=== PATIENT | male | born 1965 | race Caucasian/White ===

== ENCOUNTER → 2024-03-21 | Outpatient (CLI) | payer BC, SELFPAY ==
[2024-03-21 11:58] LABS: Anion Gap 5 (7-16); BUN/Creatinine Ratio 23 Ratio (12-20); Blood Urea Nitrogen 18 mg/dL (9-23); Calcium 10.5 mg/dL (8.3-10.6); Calcium (Corrected) 10.5 mg/dL (8.5-10.1); Chloride 106 mMol/L (98-107); Creatinine (Component) 0.8 mg/dL (0.6-1.3); Glucose 91 mg/dL (74-106); Osmolality,Calculated 281 (275-295); Phosphorous 2.5 mg/dL (2.4-5.1); Potassium 4.3 mMol/L (3.4-5.1); Sodium 140 mMol/L (136-145); eGFR > 60 See Note
== END | disposition home or self-care (01) ==
PROVIDERS: PCP Specialist; Referring Provider Psychiatry & Neurology Neurology; Visit Provider Psychiatry & Neurology Neurology
DX: Z01.89 Encounter for other specified special examinations (principal)
CPT/HCPCS: 36415; 80069

== ENCOUNTER → 2024-07-08 | Outpatient (CLI) | payer BC, SELFPAY ==
[2024-07-08 13:56] LABS: Basophils % (Auto) 0 % (0-2.5); Eosinophils % (Auto) 0 % (0-10); Hematocrit 46.1 % (41.0-53.0); Hemoglobin 15.6 g/dL (13.5-16.0); Immature Granulocytes % (Auto) 1 % (0-0); Immature Granulocytes Auto 0.03 Thou/mm3 (0.00-0.00); Lymphocytes # (Auto) 1.4 Thou/mm3 (1.0-4.8); Lymphocytes % (Auto) 23 % (10-50); Mean Corpuscular HGB Conc 33.8 g/dl (31.0-37.0); Mean Corpuscular Hemoglobin 28.2 pg (25.0-35.0); Mean Corpuscular Volume 83 fL (80-100); Monocytes # (Auto) 0.4 Thou/mm3 (0.0-0.8); Monocytes % (Auto) 7 % (0-12); Neutrophils # (Auto) 4.2 Thou/mm3 (1.8-7.7); Neutrophils % (Auto) 70 % (37-80); Nucleated Red Blood Cell % 0 /100 WBC (0); Platelet Count 208 Thou/mm3 (140-440); RDW Standard Deviation 41.8 fL (35.1-43.9); Red Blood Count 5.54 Miln/mm3 (4.50-5.90); White Blood Count 6.1 Thou/mm3 (3.8-10.6)
[2024-07-08 14:17] LABS: Alanine Aminotransferase 44 U/L (10-49); Albumin, Serum 4.4 gm/dL (3.5-5.0); Albumin/Globulin Ratio 1.4 (1.2-2.2); Anion Gap 9 (7-16); Aspartate Amino Transferase 36 U/L (0-34); BUN/Creatinine Ratio 18 Ratio (12-20); Bilirubin,Total 0.5 mg/dL (0.3-1.2); Blood Urea Nitrogen 14 mg/dL (9-23); Calcium 9.9 mg/dL (8.3-10.6); Calcium (Corrected) 9.9 mg/dL (8.5-10.1); Carbon Dioxide 27.5 mMol/L (20.0-31.0); Chloride 104 mMol/L (98-107); Creatinine (Component) 0.8 mg/dL (0.6-1.3); Globulin 3.2 gm/dL (2.3-3.5); Glucose 81 mg/dL (74-106); Osmolality,Calculated 278 (275-295); Potassium 4.1 mMol/L (3.4-5.1); Sodium 140 mMol/L (136-145); Total Protein 7.6 gm/dL (5.7-8.2); eGFR > 60 See Note
[2024-07-08 14:54] LABS: Alkaline Phosphatase 57 U/L (46-116)
== END | disposition home or self-care (01) ==
LOC: COPL 12:32
PROVIDERS: PCP Specialist; Referring Provider Psychiatry & Neurology Neurology; Visit Provider Psychiatry & Neurology Neurology
DX: Z01.89 Encounter for other specified special examinations (principal)
CPT/HCPCS: 36415; 80053; 85025

== ENCOUNTER 2025-01-17 12:05 | Inpatient (IN) | payer BC, SELFPAY ==
[2025-01-17] VITALS (7 sets, daily range): BP systolic 121–156; BP diastolic 73–86; PULSE 54–66; RESP 16–99; TEMP 35.9–37.4; O2SAT 97–98; BMI 29.7; BMI 27.8
--- NOTE | 2025-01-17 12:57 | XR_ITS ---
Examination: CT abdomen with intravenous contrast CT pelvis with intravenous contrast 2-D coronal reconstructions 2-D sagittal reconstructions Date and time of exam:January 17, 2025, 1518 hrs. Indications: Onset rectal bleeding today. CTDI: vol (mGy) 22.3 DLP: (mGycm) 969 Technique: Multiple axial sections of the abdomen and pelvis have been obtained. 64 slice high-resolution scanner used. 3 mm axial sections have been obtained, post intravenous injection 60 cc Isovue-370. 2-D sagittal, coronal reconstructions obtained. Low dose protocols were performed. One or more of the following dose reduction techniques were used; automated exposure control, adjustment of the mA and/or KV according to patient size, use of iterative reconstruction technique. Findings: No focal liver or splenic lesion. No biliary tract dilatation. No gallstones. No pancreatic mass. Normal adrenal glands. 3 mm right renal calculus, no hydronephrosis or ureteral calculi Aorta normal size. Normal appendix. Colonic diverticulosis, no diverticulitis. No bowel obstruction. Minimal thickening the rectal wall. Moderate prostatomegaly. No bladder mass Grade 1 spondylolisthesis L5 on S1 with advanced degenerative disc disease at this level Impression: 8mm right renal calculus, no hydronephrosis or ureteral calculi Normal appendix Colonic diverticulosis, no diverticulitis Mild thickening the rectal wall, differential would include proctitis, clinical correlation advised
--- NOTE | 2025-01-17 12:57 | EKG_ITS ---
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
--- NOTE | 2025-01-17 12:58 | PD.EDGIBLD ---
ED GI Bleed E/HPI General Chief complaint: GI Bleed Stated complaint: RECTAL BLEEDING x5 DAYS WORSE TODAY Time Seen by Provider: 01/17/25 12:09 Arrival date/time: 01/17/25 12:05 RME / HPI RME / HPI Narrative: 59-year-old male patient with significant history of myasthenia gravis, came in for evaluation regarding rectal bleeding for the last 3 days. For the first 2 days the rectal bleeding is mild however this morning patient went to the restroom hoping no bowel movement noticed gushing of blood with blood clots. Patient also complaining of abdominal discomfort, described as crampy, severity moderate. Patient denies any dizziness. Denies any other complaints patient is not taking any blood thinner. Related Data Home Medications ?Medication ?Instructions ?Recorded ?Confirmed alprazolam 0.5 mg tablet 0.5 mg PO PRN Sleep 04/22/21 Held on 04/22/21. Instructions: Resume on 04/23/21. dexlansoprazole 60 mg 60 mg PO DAILY 04/22/21 04/22/21 capsule,biphase delayed release (Dexilant) diclofenac sodium 1 % topical gel topical 04/22/21 fenofibrate nanocrystallized 145 145 mg PO DAILY 04/22/21 04/22/21 mg tablet telmisartan 40 mg tablet 40 mg PO DAILY 04/22/21 04/22/21 Allergies Allergy/AdvReac Type Severity Reaction Status Date / Time scallops Allergy Severe Vomiting Verified 01/17/25 12:07 Review of Systems Review of Systems Narrative Review of Systems: Review of system reviewed and within normal limits except mentioned in HPI ED Exam Narrative Physical exam: VITAL SIGNS: Reviewed. GENERAL APPEARANCE: Alert and interactive, follows commands, no acute distress, HEAD AND FACE: Non-traumatic. ENT: PERRL, pink conjunctivitis, eyelid no trauma, Mucous membrane moist. NECK: Supple, nontender, no nuchal rigidity. CHEST: No tenderness, no crepitus, no paradoxical movement, no retractions. LUNGS: Clear, well ventilated, symmetric, no rales, no wheezing, no ronchi, no stridor, good breath sounds bilaterally. HEART: Regular rate, regular rhythm, no murmur, no gallops. ABDOMEN: Soft, positive bowel sounds, nondistended, no guarding, nontender, no rebound, no masses, RECTAL: No external hemorrhoids noted, no active bleeding noted in the rectum GENITAL: Deferred. NEUROLOGICAL: Gross motor function intact sensory function intact, Appropriate for age. MUSCULOSKELETAL: low back nontender, full range of motion. EXTREMITIES: Nontender, full range of motion. SKIN: Color pink, dry, no rash, no lacerations, no abrasions, no contusions. LYMPHATICS: Deferred. Course Quality Measures none Orders Category Date Time Status COVID-19 Screening Questionnaire NOW Care 01/17/25 15:[address] Screening NOW Care 01/17/25 12:57 Active Decision to Admit X1 Care 01/17/25 15:52 Active EKG (ED ONLY) *Do not use* NOW Care 01/17/25 12:57 Completed Insert IV NOW Care 01/17/25 14:23 Active Consult to Gastroenterology Stat Cons 01/17/25 15:[address] abdomen pelvis w con Stat Exams 01/17/25 12:57 Completed EKG (ED Only) Stat Exams 01/17/25 12:57 Draft CBC Stat Lab 01/17/25 13:27 Completed Comprehensive Metabolic Panel Stat Lab 01/17/25 13:27 Completed Partial Thromboplastin Time Stat Lab 01/17/25 13:27 Completed Prothrombin Time with INR Stat Lab 01/17/25 13:27 Completed Troponin I Stat Lab 01/17/25 13:27 Completed Type and Screen Stat Lab 01/17/25 13:27 Completed Urinalysis Stat Lab 01/17/25 13:25 Completed NA DAVIS/NAHCO3/STORM/PEG (Golytely) [Golytely] Med 01/17/25 15:52 Discontinued 4,000 ml PO X1 ONE Vital Signs Vital signs: Vital Signs Temperature 98.3 F 01/17/25 12:31 Pulse Rate 64 01/17/25 12:31 Respiratory Rate 17 01/17/25 12:31 Blood Pressure 121/80 01/17/25 12:31 Pulse Oximetry (%) 97 01/17/25 12:31 Oxygen Delivery Method Room Air 01/17/25 12:31 GI Bleed MDM Narrative MDM Narrative:: 59-year-old male patient with significant history of myasthenia gravis, came in for evaluation regarding rectal bleeding for the last 3 days. For the first 2 days the rectal bleeding is mild however this morning patient went to the restroom hoping no bowel movement noticed gushing of blood with blood clots. Patient also complaining of abdominal discomfort, described as crampy, severity moderate. Patient denies any dizziness. Denies any other complaints patient is not taking any blood thinner. Patient's laboratory workup all came back unremarkable no anemia noted. CT scan of the abdomen pelvis showed 8mm right renal calculus, no hydronephrosis or ureteral calculi Normal appendix Colonic diverticulosis, no diverticulitis Mild thickening the rectal wall, differential would include proctitis, clinical correlation advised EKG showed normal sinus rhythm, ventricular rate of 67 bpm, no ST segment elevation depression noted. Spoke with GI specialist on-call Dr. Esparza, discussed the case, and signed the patient in the emergency room. Patient is to be started on GoLytely. Patient data External records reviewed:: None Clinical information provided by:: patient Social determinants that could affect healthcare access:: none Patient has the following chronic illnesses:: Myasthenia gravis How is presenting disease/condition affected by chronic disease/condition?: uneffected by Evaluation data The following diagnostics were reviewed and interpreted by me:: lab results, radiology exam(s) and EKG tracing(s) Lab and/or radiology exams considered but not ordered:: None Interpretation Summary: See results MDM Medications / Prescriptions Medications or Prescriptions considered but not ordered:: None Medication administrations:: Medication Administration History Discontinued Medications Polyethylene Glycol/Electrolytes (Na Davis/Nahco3/Storm/Peg (Golytely) 4,000 Ml Btl) 4,000 ml PO X1 ONE Stop: 01/17/25 15:53 GoLytely Consultations Consultation(s) initiated? (list below): No Diagnosis GI bleed differential diagnosis: hemorrhoids, Deepali-Ruelas syndrome, Lower gastrointestinal hemorrhage and hematochezia Most likely diagnosis given after review of the tests above:: Lower GI bleed Admission Indicated Admission indicated?: indicated Admission Request Was there a request for admission?: Yes Admission Attestation Admission request attestation: Discussed case with [] from Hospitalist service regarding admission. Discussed patients ED course, exam findings, labs, and radiology results. The Hospitalist [agrees,declines] to accept the patient for admission. Disposition Plan Disposition Plan: Admit Discharge Plan Plan Patient Disposition: Admit Acute Care w/in Hospital Discharge Disposition comment: Stable Prescriptions/Referrals Prescriptions/Med Rec: No Action telmisartan 40 mg tablet 40 mg PO DAILY fenofibrate nanocrystallized 145 mg tablet 145 mg PO DAILY diclofenac sodium 1 % gel TOPICAL Dexilant 60 mg capsule,biphase delayed releas 60 mg PO DAILY alprazolam 0.5 mg tablet 0.5 mg PO PRN (Reason: Sleep) Referrals: Vega Esparza MD [Primary Care Provider] - In 1 week Problem List Clinical Impression: Lower gastrointestinal hemorrhage Patient/Caregiver Discharge Instructions Print Language: Somali Stand Alone Forms: Kerline Award Info., Patient Portal Info Letter
[2025-01-17 13:46] LABS: Collection Type, Urine Clean Catch
[2025-01-17 13:51] LABS: Basophils # (Auto) 0.0 Thou/mm3 (0.0-0.2); Basophils % (Auto) 1 % (0-2.5); Eosinophils # (Auto) 0.1 Thou/mm3 (0.0-0.5); Eosinophils % (Auto) 1 % (0-10); Hematocrit 50.0 % (41.0-53.0); Hemoglobin 16.6 g/dL (13.5-16.0); Immature Granulocytes Auto 0.02 Thou/mm3 (0.00-0.00); Lymphocytes # (Auto) 1.6 Thou/mm3 (1.0-4.8); Lymphocytes % (Auto) 25 % (10-50); Mean Corpuscular HGB Conc 33.2 g/dl (31.0-37.0); Mean Corpuscular Hemoglobin 28.1 pg (25.0-35.0); Mean Corpuscular Volume 85 fL (80-100); Monocytes # (Auto) 0.5 Thou/mm3 (0.0-0.8); Monocytes % (Auto) 8 % (0-12); Neutrophils # (Auto) 4.1 Thou/mm3 (1.8-7.7); Neutrophils % (Auto) 65 % (37-80); Nucleated Red Blood Cell # 0.00 Thou/mm3 (0.00-0.00); Nucleated Red Blood Cell % 0 /100 WBC (0); Platelet Count 215 Thou/mm3 (140-440); RDW Standard Deviation 39.1 fL (35.1-43.9); Red Blood Count 5.90 Miln/mm3 (4.50-5.90); White Blood Count 6.3 Thou/mm3 (3.8-10.6)
[2025-01-17 14:00] LABS: Bilirubin,Urine Negative (Negative); Blood,Urine Negative (Negative); Clarity,Urine Clear (Clear/Hazy); Color,Urine Lt-Yellow (Lt Yel-Yel); Glucose, Urine Negative (Negative); Ketones,Urine Negative (Negative); Leukocyte Esterase,Urine Negative (Negative); Nitrite,Urine Negative (Negative); PH,Urine 7.0 (5.0-7.0); Protein,Urine Negative (Neg - Trace); RBC,Urine 2 /hpf (0-3); Specific Gravity,Urine 1.018 (1.001-1.035); Squamous Epithelial Cell,Urine < 1 /hpf (0-5); Urobilinogen,Urine Negative mg/dL (0.0-1.0); WBC,Urine 1 /hpf (0-5)
[2025-01-17 14:09] LABS: INR 1.1 (0.9-1.3); Partial Thromboplastin Time 25.3 Seconds (22.0-36.0); Prothrombin Time 11.6 Seconds (9.0-12.2)
[2025-01-17 14:34] LABS: Alanine Aminotransferase 14 U/L (10-49); Albumin, Serum 4.8 gm/dL (3.5-5.0); Albumin/Globulin Ratio 2.2 (1.2-2.2); Alkaline Phosphatase 61 U/L (46-116); Anion Gap 12 (7-16); Aspartate Amino Transferase 14 U/L (0-34); BUN/Creatinine Ratio 7 Ratio (12-20); Bilirubin,Total 0.6 mg/dL (0.3-1.2); Blood Urea Nitrogen 8 mg/dL (9-23); Calcium 11.7 mg/dL (8.3-10.6); Calcium (Corrected) 11.7 mg/dL (8.5-10.1); Carbon Dioxide 26.5 mMol/L (20.0-31.0); Chloride 109 mMol/L (98-107); Creatinine (Component) 1.1 mg/dL (0.6-1.3); Estimated Creatinine Clearance 90.8 mL/min (>60); Globulin 2.2 gm/dL (2.3-3.5); Glucose 82 mg/dL (74-106); Osmolality,Calculated 289 (275-295); Potassium 4.6 mMol/L (3.4-5.1); Sodium 147 mMol/L (136-145); Total Protein 7.0 gm/dL (5.7-8.2); Troponin I < 0.020 ng/mL (0.0-0.045); eGFR > 60 See Note
--- NOTE | 2025-01-17 16:51 | PD.IMCONS ---
HPI Data of Consult Primary Care Provider: Vega Esparza MD Consult Narrative Reason for consult: Hematochezia multiple episodes of bright red bleeding per rectum with blood History of present illness: 59 years old male presented to the emergency room after his called me patient having multiple episodes of hematochezia and passage of blood clots He does have a history of endoscopy with a colonic polyps and diverticulosis from a previous colonoscopy about couple of years ago Patient has a history of essential hypertension and myasthenia gravis cc:: cc: Review of Systems Review of Systems Systems Reviewed: All systems reviewed, normal except as documented Past Medical History Surgical History OTHER SURGICAL HX: As in the history of present illness Meds Home Medications and Allergies Home Medications ?Medication ?Instructions ?Recorded ?Confirmed ?Type alprazolam 0.5 mg tablet 0.5 mg PO PRN Sleep 04/22/21 History Held on 04/22/21. Instructions: Resume on 04/23/21. dexlansoprazole 60 mg 60 mg PO DAILY 04/22/21 04/22/21 History capsule,biphase delayed release (Dexilant) diclofenac sodium 1 % topical gel topical 04/22/21 History fenofibrate nanocrystallized 145 145 mg PO DAILY 04/22/21 04/22/21 History mg tablet telmisartan 40 mg tablet 40 mg PO DAILY 04/22/21 04/22/21 History Allergies Allergy/AdvReac Type Severity Reaction Status Date / Time scallops Allergy Severe Vomiting Verified 01/17/25 12:07 Exam Vital Signs Temp Pulse Resp BP Pulse Ox O2 Del Method 99.3 F 54 L 18 156/86 H 97 Room Air 01/17/25 14:19 01/17/25 16:28 01/17/25 16:28 01/17/25 16:28 01/17/25 16:28 01/17/25 16:28 Constitutional Comments: Alert oriented Routine Respiratory Exam Comments: Normal to auscultation Routine Abdominal Exam Comments: Soft nontender Results Labs 01/17/25 13:27 01/17/25 13:27 Labs: Short CBC 01/17/25 Range/Units 13:27 WBC 6.3 (3.8-10.6) Thou/mm3 Hgb 16.6 H (13.5-16.0) g/dL Hct 50.0 (41.0-53.0) % Plt Count 215 (140-440) Thou/mm3 BMP 01/17/25 13:27 Sodium 147 H Potassium 4.6 Chloride 109 H Carbon Dioxide 26.5 BUN 8 L Creatinine 1.1 Glucose 82 Calcium 11.7 H Cardiac Enzymes 01/17/25 Range/Units 13:27 Troponin I < 0.020 (0.0-0.045) ng/mL Liver Function 01/17/25 Range/Units 13:27 Total Bilirubin 0.6 (0.3-1.2) mg/dL AST 14 (0-34) U/L ALT 14 (10-49) U/L Alkaline Phosphatase 61 (46-116) U/L Albumin 4.8 (3.5-5.0) gm/dL Urine 01/17/25 Range/Units 13:25 Urine Color Lt-Yellow (Lt Yel-Yel) Urine Clarity Clear (Clear/Hazy) Urine pH 7.0 (5.0-7.0) Ur Specific [place] 1.018 (1.001-1.035) Urine Protein Negative (Neg - Trace) Urine Glucose (UA) Negative (Negative) Assessment and Plan Additional Assessment & Plan Additional Plan: Hematochezia Bright red bleeding per rectum Abnormal CT scan of the abdomen pelvis showing thickening of the rectal wall Plan Clear liquid diet GoLytely prep Consent obtained for fiberoptic colonoscopy with possible biopsy possible therapeutic intervention under intravenous moderate sedation Serial CBC Will follow the patient Other medical problems include Essential hypertension Myasthenia gravis Thank you once again for the opportunity to participate in care of this
--- NOTE | 2025-01-17 17:03 | PD.RESHP ---
Documentation for date of: 01/17/25 [facility] History of Present Illness Chief complaint: Bloody bowel movement History of present illness: Mr. Harry is a 59-year-old male with a past medical history of myasthenia gravis (diagnosed mid March 2024, follows Dr Lopez), diverticulosis, hemorrhoids, hypertension, and hyperlipidemia, who presents to [facility] ED on 01/17 for bloody bowel movements. The patient is admitted for GI bleed workup. The patient noted that he was having some bloody bowel movements for the past 2 days. When initially started, the patient noted that it would stop after he got up from the toilet. However, this morning, the patient noted that even after he got up, it kept on flowing and seem to be more blood than usual, which prompted the patient to seek care in the ED. It was noted to be bright red blood, no dark tarry stools were found. Patient did have periodic blood in stools since about 5 years ago, however these were small spots and not quite like the past 2 days. The patient's last colonoscopy was performed on 06/14/2021, which showed internal hemorrhoids, polyp of the sigmoid colon, and diverticulosis. Patient does not have any pain during these episodes of bleeding. Patient denies any changes in medication or lifestyle recently that may explain his symptoms. Patient denies nausea, vomiting, fever, chills, cough, chest pain, abdominal pain, and dysuria. ED course: Patient presented with stable vitals. Initial labs in ED significant for calcium of 11.7 CT abdomen/pelvis showed 3 mm right renal calculus, no hydronephrosis or ureteral calculi, colonic diverticulosis without diverticulitis, and mild thickening of rectal wall. Consulted GI, who plans to do colonoscopy tomorrow. 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 Skin: Warm, dry, intact. Head: Normocephalic, atraumatic. Eye: Normal conjunctiva, PERRL. Throat: Oral mucosa moist. No obvious lesions in oropharynx. Cardiovascular: Regular rate and rhythm, no murmur, +S1/S2. Respiratory: Lungs are clear to auscultation, respirations unlabored, no crackles, no wheezing. Gastrointestinal: Soft, nontender, non-distended. No guarding or rebound tenderness. Extremities: No edema, no cyanosis, no clubbing. Neuro: No focal deficits observed. Conversant, moving all extremities. No overt cerebellar signs/incoordination. Psychiatric: Cooperative, appropriate affect. Results: Labs 01/19/25 04:53 01/19/25 04:53 Labs: Short CBC 01/17/25 Range/Units 13:27 WBC 6.3 (3.8-10.6) Thou/mm3 Hgb 16.6 H (13.5-16.0) g/dL Hct 50.0 (41.0-53.0) % Plt Count 215 (140-440) Thou/mm3 BMP 01/17/25 13:27 Sodium 147 H Potassium 4.6 Chloride 109 H Carbon Dioxide 26.5 BUN 8 L Creatinine 1.1 Glucose 82 Calcium 11.7 H Cardiac Enzymes 01/17/25 Range/Units 13:27 Troponin I < 0.020 (0.0-0.045) ng/mL Liver Function 01/17/25 Range/Units 13:27 Total Bilirubin 0.6 (0.3-1.2) mg/dL AST 14 (0-34) U/L ALT 14 (10-49) U/L Alkaline Phosphatase 61 (46-116) U/L Albumin 4.8 (3.5-5.0) gm/dL Urine 01/17/25 Range/Units 13:25 Urine Color Lt-Yellow (Lt Yel-Yel) Urine Clarity Clear (Clear/Hazy) Urine pH 7.0 (5.0-7.0) Ur Specific [place] 1.018 (1.001-1.035) Urine Protein Negative (Neg - Trace) Urine Glucose (UA) Negative (Negative) Quality Measures Quality Measures none Medications Home Medications and Allergies Home Medications ?Medication ?Instructions ?Recorded ?Confirmed ?Type diclofenac sodium 1 % topical gel 2 g topical QAM 04/22/21 01/17/25 History fenofibrate nanocrystallized 145 145 mg PO DAILY 04/22/21 01/17/25 History mg tablet telmisartan 40 mg tablet 40 mg PO DAILY 04/22/21 01/17/25 History mycophenolate mofetil 250 mg 250 mg PO BID 01/17/25 01/17/25 History capsule pyridostigmine bromide 180 mg 180 mg PO BID 01/17/25 01/17/25 History tablet,extended release Allergies Allergy/AdvReac Type Severity Reaction Status Date / Time scallops Allergy Severe Vomiting Verified 01/17/25 12:07 Visit Medications Acetaminophen (Acetaminophen 325 Mg Tablet) 650 mg PO Q6H PRN PRN Reason: Fever >101.5 or pain 1-3 Stop: 02/16/25 16:59 Discontinued Medications Polyethylene Glycol/Electrolytes (Na [place]/Nahco3/Mum[place]z/Peg (Golytely) 4,000 Ml Btl) 4,000 ml PO X1 ONE Stop: 01/17/25 16:56 Assessment & Plan Plan Mr. Harry is a 59-year-old male with a past medical history of myasthenia gravis (diagnosed mid March 2024, follows Dr Lopez), diverticulosis, internal hemorrhoids, hypertension, and hyperlipidemia, who presents to [facility] ED on 01/17 for bloody bowel movements. The patient is admitted for GI bleed workup. #Lower GI bleed #History of Diverticulosis #History of hemorrhoids, internal Patient reported bright red blood in stools that started about 2 days prior to admission on 01/17. No black, tarry stools were noted and patient has no pain with episodes of bleeding. Patient does have a history of diverticulosis as noted in colonoscopy back in 2021. It is possible that the diverticulosis is a source of this bleeding and/or his internal hemorrhoids. Patient did not appear symptomatic or anemic from GI bleed on admission. Malignancy is also possible given family history. Diagnostics: CT abdomen/pelvis 01/17 showed 3 mm right renal calculus, no hydronephrosis or ureteral calculi, colonic diverticulosis without diverticulitis, and mild thickening of rectal wall. Plan: GI consulted, appreciate recommendations Colonoscopy planned for 01/18 GoLytely Clear liquid diet #Myasthenia gravis Patient has a history of myasthenia gravis that was diagnosed with March 2024 by the patient's neurologist, Dr. Lopez. Plan: Resume patient's home pyridostigmine ER 150 mg twice daily Resume patient's home mycophenolate mofetil 250 mg twice daily Avoid medications that can trigger myasthenic crisis (fluoroquinolones, macrolides, AEDs, antipsychotics, beta-blockers, succinylcholine) #Hypercalcemia Patient noted to have corrected calcium of 11.7 in ED. Patient does not appear to be symptomatic at this time. Plan: Continue to monitor Patient to follow-up outpatient 1 L LR at 75 cc/h on 01/17 #Primary hypertension Patient does have a history of hypertension. In ED, vitals were not significant for hypertension. Patient does take telmisartan 40 mg daily at home. Plan: Losartan 50 mg daily (equivalent dose for telmisartan 40 mg daily) Continue to monitor #Hyperlipidemia Patient has a history of hyperlipidemia and takes fenofibrate 145 mg daily at home. Will hold fenofibrate for now, plan to resume upon discharge DVT Prophylaxis: SCDs GI Prophylaxis: N/A Bowel: N/A Diet: Clear liquids B[place]egra: N/A Lines: Peripheral IV Antibiotics: N/A Code Status: FULL Reason for Hospitalization: GI bleed Other Barriers to Discharge: Colonoscopy Patient plan of care was discussed with attending physician Dr. Polina Blanco, PGY1 Attending Provider Attestation/Addendum Face to face evaluation was performed by me. I have personally seen and examined the patient. I discussed the assessment and plan with the entire medicine team. I reviewed available medical records, imaging studies, laboratory results. I agree with the above subjective data, objective findings, assessment and plan except as corrected by me or noted below Acute blood loss anemia not requiring blood transfusion due to below Lower GI bleed Hematochezia Myasthenia gravis not exacerbated - admit for further workup GI consulted plan for colonoscopy continue myasthenia gravis medicationMonitor hemoglobin and vitals closelys More than > 30 minutes spent on the encounter
[2025-01-17] MEDS: RINGERS LACTATED 1000 ML 1,000 ML 75 ML IV (19:03)
[2025-01-17] MEDS: NA SU/NAHCO3/KC/PEG (Golytely) 4,000 ML BTL 4000 ML PO (19:04)
--- NOTE | 2025-01-17 20:27 | PC.NURSE ---
Pt said he doesnt want to take any medication from the hospital, he wants tot takes his own meds, MD Sanderson made aware.
--- NOTE | 2025-01-17 21:10 | PC.NURSE ---
Pt has quiroz amounting $110 and total of 7 credit cads, benefit card, gas card, pts advised to put it in the safe,per pts want to keep it at bedside. Daughter will stay overnight and will take it home with her tomorrow.
--- NOTE | 2025-01-17 21:49 | PC.NURSE ---
Pt had a bright red stool 2x already, MD Sanderson made aware, pt is asymptomatic at this time, no C/O of dizziness, BP 140/81. Per MD to continue monitor, to inform him if he still continue having fresh blood in the stool.
[2025-01-18] VITALS (19 sets, daily range): BP systolic 112–174; BP diastolic 63–94; PULSE 59–79; RESP 16–99; TEMP 36–36.8; O2SAT 96–100
[2025-01-18 06:12] LABS: Basophils # (Auto) 0.0 Thou/mm3 (0.0-0.2); Basophils % (Auto) 1 % (0-2.5); Eosinophils # (Auto) 0.1 Thou/mm3 (0.0-0.5); Eosinophils % (Auto) 2 % (0-10); Hematocrit 42.5 % (41.0-53.0); Hemoglobin 13.9 g/dL (13.5-16.0); Immature Granulocytes Auto 0.03 Thou/mm3 (0.00-0.00); Lymphocytes # (Auto) 1.9 Thou/mm3 (1.0-4.8); Lymphocytes % (Auto) 29 % (10-50); Mean Corpuscular HGB Conc 32.7 g/dl (31.0-37.0); Mean Corpuscular Hemoglobin 27.5 pg (25.0-35.0); Mean Corpuscular Volume 84 fL (80-100); Monocytes # (Auto) 0.5 Thou/mm3 (0.0-0.8); Monocytes % (Auto) 8 % (0-12); Neutrophils # (Auto) 3.9 Thou/mm3 (1.8-7.7); Neutrophils % (Auto) 60 % (37-80); Nucleated Red Blood Cell # 0.00 Thou/mm3 (0.00-0.00); Nucleated Red Blood Cell % 0 /100 WBC (0); Platelet Count 179 Thou/mm3 (140-440); RDW Standard Deviation 39.7 fL (35.1-43.9); Red Blood Count 5.05 Miln/mm3 (4.50-5.90); White Blood Count 6.5 Thou/mm3 (3.8-10.6)
[2025-01-18 07:12] LABS: Alanine Aminotransferase 12 U/L (10-49); Albumin, Serum 3.8 gm/dL (3.5-5.0); Albumin/Globulin Ratio 2.0 (1.2-2.2); Alkaline Phosphatase 49 U/L (46-116); Anion Gap 11 (7-16); Aspartate Amino Transferase 12 U/L (0-34); BUN/Creatinine Ratio 10 Ratio (12-20); Bilirubin,Total 0.6 mg/dL (0.3-1.2); Blood Urea Nitrogen 9 mg/dL (9-23); Calcium 9.4 mg/dL (8.3-10.6); Calcium (Corrected) 9.6 mg/dL (8.5-10.1); Carbon Dioxide 26.8 mMol/L (20.0-31.0); Chloride 106 mMol/L (98-107); Creatinine (Component) 0.9 mg/dL (0.6-1.3); Estimated Creatinine Clearance 99.9 mL/min (>60); Globulin 1.9 gm/dL (2.3-3.5); Glucose 77 mg/dL (74-106); Magnesium 1.6 mg/dL (1.6-2.6); Osmolality,Calculated 284 (275-295); Phosphorous 2.5 mg/dL (2.4-5.1); Potassium 3.7 mMol/L (3.4-5.1); Sodium 144 mMol/L (136-145); Total Protein 5.7 gm/dL (5.7-8.2); eGFR > 60 See Note
--- NOTE | 2025-01-18 08:59 | PC.NURSE ---
Patient took his home medications at 05:30 this morning. He is refusing medications from the hospital. I educated patient on the importance of not taking any of his home medications. I thanked him for being honest and letting me know.
--- NOTE | 2025-01-18 09:29 | PD.RESPRO ---
Documentation for date of: 01/18/25 Subjective Subjective Interval history: Overnight events: No acute events overnight. Patient was seen and examined at bedside. AM vitals and labs reviewed. Patient appeared anxious today as he is having worsening bloody bowel movement. The patient attempted to use the bathroom today, however while came out was bright red blood and blood clots. Patient attempted to get off the toilet, but he continues to keep bleeding. Patient does not appear symptomatic at this time and bleeding is not uncontrollable. Notified patient that if he were to become symptomatic, him or his at bedside must notify nursing staff. 5 AM hemoglobin 13.9, repeat hemoglobin 10 AM 14.6 Pending colonoscopy planned for later today. Patient taking own medications brought from home. Review of systems otherwise negative except for what is mentioned above. Exam Vital Signs Temp Pulse Resp BP Pulse Ox O2 Del Method 96.8 F 61 16 133/78 H 96 Room Air 01/18/25 08:00 01/18/25 08:00 01/18/25 08:00 01/18/25 08:00 01/18/25 08:00 01/18/25 08:00 Narrative Exam Physical Exam: General: Alert, no acute distress. Anxious. Skin: Warm, dry, intact. Head: Normocephalic, atraumatic. Eye: Normal conjunctiva, PERRL. Respiratory: Respirations unlabored on room air. Extremities: No edema, no cyanosis, no clubbing. Neuro: No focal deficits observed. Conversant, moving all extremities. No overt cerebellar signs/incoordination. Psychiatric: Cooperative, appropriate affect. Objective Labs 01/19/25 04:53 01/19/25 04:53 Labs: Laboratory Results - last 24 hr 01/17/25 01/17/25 01/18/25 13:25 13:27 05:10 WBC 6.3 6.5 RBC 5.90 5.05 Hgb 16.6 H 13.9 D Hct 50.0 42.5 MCV 85 84 MCH 28.1 27.5 MCHC 33.2 32.7 RDW Std Deviation 39.1 39.7 Plt Count 215 179 D Neut % (Auto) 65 60 Lymph % (Auto) 25 29 [place] % (Auto) 8 8 Eos % (Auto) 1 2 Baso % (Auto) 1 1 Neut # (Auto) 4.1 3.9 Lymph # (Auto) 1.6 1.9 [place] # (Auto) 0.5 0.5 Eos # (Auto) 0.1 0.1 Baso # (Auto) 0.0 0.0 Immature Gran # (Auto) 0.02 H 0.03 H Absolute Nucleated RBC 0.00 0.00 Immature Gran % 0 1 H Nucleated RBC % 0 0 PT 11.6 INR 1.1 APTT 25.3 Sodium 147 H 144 Potassium 4.6 3.7 D Chloride 109 H 106 Carbon Dioxide 26.5 26.8 Anion Gap 12 11 BUN 8 L 9 Creatinine 1.1 0.9 Estim Creat Clear Calc 90.8 99.9 eGFR > 60 > 60 BUN/Creatinine Ratio 7 L 10 L Glucose 82 77 Calculated Osmolality 289 284 Calcium 11.7 H 9.4 D Corrected Calcium 11.7 H 9.6 D Phosphorus 2.5 Magnesium 1.6 Total Bilirubin 0.6 0.6 AST 14 12 ALT 14 12 Alkaline Phosphatase 61 49 Troponin I < 0.020 Total Protein 7.0 5.7 Albumin 4.8 3.8 D Globulin 2.2 L 1.9 L Albumin/Globulin Ratio 2.2 2.0 Ur Collection Type Clean Catch Urine Color Lt-Yellow Urine Clarity Clear Urine pH 7.0 Ur Specific [place] 1.018 Urine Protein Negative Urine Glucose (UA) Negative Urine Ketones Negative Urine Blood Negative Urine Nitrite Negative Urine Bilirubin Negative Urine Urobilinogen (Auto) Negative Ur Leukocyte Esterase Negative Urine RBC 2 Urine WBC 1 Ur Squamous Epith Cells < 1 Urine Bacteria None Blood Type A Positive Antibody Screen NEGATIVE Blood Bank Wristband ID Yes Quality Measures Quality Measures VTE prophylaxis Assessment & Plan Assessment Current Active Medications: Generic Name Dose Route Start Last Admin Trade Name Freq PRN Reason Stop Dose Admin Acetaminophen 650 mg 01/17/25 17:00 Acetaminophen 325 Mg Tablet PO 02/16/25 16:59 Q6H PRN Fever >101.5 or pain 1-3 Pyridostigmine Er 0 ea 01/17/25 21:00 01/17/25 20:26 180 Mg Tablet PO 02/16/25 20:59 Not Given BID [facility] Losartan Potassium 50 mg 01/18/25 09:00 01/18/25 08:49 Losartan Potassium 25 Mg Tablet PO 02/17/25 08:59 Not Given DAILY [facility] Mycophenolate Mofetil 250 mg 01/17/25 21:00 01/18/25 08:49 Mycophenolate 250 Mg Capsule PO 02/16/25 20:59 Not Given BID MICHELLE Plan Mr. Harry is a 59-year-old male with a past medical history of myasthenia gravis (diagnosed mid March 2024, follows Dr Lopez), diverticulosis, internal hemorrhoids, hypertension, and hyperlipidemia, who presents to [facility] ED on 01/17 for bloody bowel movements. The patient is admitted for GI bleed workup. #Lower GI bleed #History of Diverticulosis #History of hemorrhoids, internal Patient reported bright red blood in stools that started about 2 days prior to admission on 01/17. No black, tarry stools were noted and patient has no pain with episodes of bleeding. Patient does have a history of diverticulosis as noted in colonoscopy back in 2021. It is possible that the diverticulosis is a source of this bleeding and/or his internal hemorrhoids. Patient did not appear symptomatic or anemic from GI bleed on admission. Malignancy is also possible given family history. Diagnostics: CT abdomen/pelvis 01/17 showed 3 mm right renal calculus, no hydronephrosis or ureteral calculi, colonic diverticulosis without diverticulitis, and mild thickening of rectal wall. Plan: GI consulted, appreciate recommendations Colonoscopy planned for 01/18 GoLytely Clear liquid diet #Myasthenia gravis Patient has a history of myasthenia gravis that was diagnosed with March 2024 by the patient's neurologist, Dr. Lopez. Plan: Resume patient's home pyridostigmine ER 150 mg twice daily Resume patient's home mycophenolate mofetil 250 mg twice daily Avoid medications that can trigger myasthenic crisis (fluoroquinolones, macrolides, AEDs, antipsychotics, beta-blockers, succinylcholine) Patient taking own medications brought from home #Hypercalcemia Patient noted to have corrected calcium of 11.7 in ED. Patient does not appear to be symptomatic at this time. Plan: Continue to monitor Patient to follow-up outpatient 1 L LR at 75 cc/h on 01/17 #Primary hypertension Patient does have a history of hypertension. In ED, vitals were not significant for hypertension. Patient does take telmisartan 40 mg daily at home. Plan: Losartan 50 mg daily (equivalent dose for telmisartan 40 mg daily) Continue to monitor Patient taking own medications brought from home #Hyperlipidemia Patient has a history of hyperlipidemia and takes fenofibrate 145 mg daily at home. Plan: Will hold fenofibrate for now, plan to resume upon discharge Patient taking own medications brought from home DVT Prophylaxis: SCDs GI Prophylaxis: N/A Bowel: N/A Diet: Clear liquids Bocanegra: N/A Lines: Peripheral IV Antibiotics: N/A Code Status: FULL Reason for Hospitalization: GI bleed Other Barriers to Discharge: Colonoscopy Patient plan of care was discussed with attending physician Dr. Polina Blanco, PGY1 Attending Provider Attestation/Addendum Face to face evaluation was performed by me. I have personally seen and examined the patient. I discussed the assessment and plan with the entire medicine team. I reviewed available medical records, imaging studies, laboratory results. I agree with the above subjective data, objective findings, assessment and plan except as corrected by me or noted below Acute blood loss anemia not requiring blood transfusion due to below Lower GI bleed Hematochezia Myasthenia gravis not exacerbated Hypomagnesemia - N.p.o. Genna pending colonoscopy GI consulted and following appreciate help. Continue home myasthenia gravis medications, avoiding magnesium not to exacerbate his myasthenia gravis. More than > 30 minutes spent on the encounter
--- NOTE | 2025-01-18 10:25 | PC.NURSE ---
Patient notified me he had a bowel movement. I went and looked at patients bowel movement. Bowel movement bloody. I notified doctor An H&H was ordered. Will continue to monitor patient.
[2025-01-18 10:31] LABS: Hematocrit 44.7 % (41.0-53.0); Hemoglobin 14.6 g/dL (13.5-16.0)
--- NOTE | 2025-01-18 13:26 | PC.NURSE ---
Patient is clear finished one gallon of golytely.
--- NOTE | 2025-01-18 15:26 | PC.SS ---
López Harry is a 59 year-old male admitted to [place] for GI bleed. SS conducted bedside contact with the patient to complete initial assessment and to discuss discharge planning. Role and reason explained. Patient confirmed demographic information. Patient identifies his Jose Manuel Harry [phone] as his surrogate decision maker. Pt states he is able to complete all ADL?s independent. Pt does not possesses any DME. Pts PCP is Isaias. Pharmacy of choice is [facility]. Discharge options discussed and the pt wishes to return home.? Pt will provide transport. No further intervention required at this time, social worker palliative care would be available to address any further concerns. DC Plan: Home Contact: Jose Manuel Address: Confirmed on face sheet PCP: Isaias
--- NOTE | 2025-01-18 16:15 | SUR.PHASEI ---
received pt and report from MARY Durán. Pt sedated, but arousable to voice. vss. no distress noted. dried blood noted to perianal area.
--- NOTE | 2025-01-18 16:16 | PC.SS ---
Rounding: Pending Colonoscopy, DC plan home, no needs
--- NOTE | 2025-01-18 16:40 | SUR.PHASEI ---
pt wakes up intermitently and states he feels the urge to have a bm. Informed him that he can push out a little but not with force due to the bands. Pt has demonstrated passing gas. vss, no bloody drainage noted to perianial area.
--- NOTE | 2025-01-18 16:42 | SUR.PHASEI ---
report called to MARY Guido.
[2025-01-18 18:43] LABS: INR 1.1 (0.9-1.3); Partial Thromboplastin Time 26.0 Seconds (22.0-36.0); Prothrombin Time 12.0 Seconds (9.0-12.2)
--- NOTE | 2025-01-18 21:16 | PC.NURSE ---
MD Esparza came and talk to pts regarding his colonoscopy result.
[2025-01-19] VITALS: BP 105/63; PULSE 60; RESP 17; TEMP 36.2; O2SAT 98
[2025-01-19 03:13] VITALS: PULSE 74; RESP 16; RESP 98
[2025-01-19 04:00] VITALS: BP 116/65; PULSE 60; RESP 16; TEMP 36.2; O2SAT 98
[2025-01-19 05:46] LABS: Basophils # (Auto) 0.0 Thou/mm3 (0.0-0.2); Basophils % (Auto) 1 % (0-2.5); Eosinophils # (Auto) 0.1 Thou/mm3 (0.0-0.5); Eosinophils % (Auto) 2 % (0-10); Hematocrit 37.8 % (41.0-53.0); Hemoglobin 12.5 g/dL (13.5-16.0); Immature Granulocytes Auto 0.02 Thou/mm3 (0.00-0.00); Lymphocytes # (Auto) 1.5 Thou/mm3 (1.0-4.8); Lymphocytes % (Auto) 26 % (10-50); Mean Corpuscular HGB Conc 33.1 g/dl (31.0-37.0); Mean Corpuscular Hemoglobin 28.1 pg (25.0-35.0); Mean Corpuscular Volume 85 fL (80-100); Monocytes # (Auto) 0.4 Thou/mm3 (0.0-0.8); Monocytes % (Auto) 8 % (0-12); Neutrophils # (Auto) 3.7 Thou/mm3 (1.8-7.7); Neutrophils % (Auto) 63 % (37-80); Nucleated Red Blood Cell # 0.00 Thou/mm3 (0.00-0.00); Nucleated Red Blood Cell % 0 /100 WBC (0); Platelet Count 107 Thou/mm3 (140-440); RDW Standard Deviation 38.7 fL (35.1-43.9); Red Blood Count 4.45 Miln/mm3 (4.50-5.90); White Blood Count 5.9 Thou/mm3 (3.8-10.6)
[2025-01-19 06:11] LABS: Alanine Aminotransferase 14 U/L (10-49); Albumin, Serum 3.6 gm/dL (3.5-5.0); Albumin/Globulin Ratio 2.4 (1.2-2.2); Alkaline Phosphatase 45 U/L (46-116); Anion Gap 11 (7-16); Aspartate Amino Transferase 23 U/L (0-34); BUN/Creatinine Ratio 6 Ratio (12-20); Bilirubin,Total 0.4 mg/dL (0.3-1.2); Blood Urea Nitrogen 5 mg/dL (9-23); Calcium 9.3 mg/dL (8.3-10.6); Calcium (Corrected) 9.6 mg/dL (8.5-10.1); Carbon Dioxide 24.5 mMol/L (20.0-31.0); Chloride 107 mMol/L (98-107); Creatinine (Component) 0.9 mg/dL (0.6-1.3); Estimated Creatinine Clearance 99.9 mL/min (>60); Globulin 1.5 gm/dL (2.3-3.5); Glucose 84 mg/dL (74-106); Magnesium 1.8 mg/dL (1.6-2.6); Osmolality,Calculated 279 (275-295); Phosphorous 3.7 mg/dL (2.4-5.1); Potassium 4.2 mMol/L (3.4-5.1); Sodium 142 mMol/L (136-145); Total Protein 5.1 gm/dL (5.7-8.2); eGFR > 60 See Note
[2025-01-19 08:00] VITALS: BP 99/68; PULSE 91; RESP 18; TEMP 36.4; O2SAT 90
[2025-01-19 10:30] VITALS: BP 110/72; PULSE 89; RESP 18; TEMP 36.2; O2SAT 98
--- NOTE | 2025-01-19 13:48 | PD.ADDDSCHGE ---
Addendum Discharge Addendum Date of report being addended: 01/19/25 Narrative: Face to face evaluation was performed by me. I have personally seen and examined the patient. I discussed the assessment and plan with the entire medicine team. I reviewed available medical records, imaging studies, laboratory results. I agree with the above subjective data, objective findings, assessment and plan except as corrected by me or noted below Lower GI bleed Internal hemorrhoids Myasthenia gravis Patient had colonoscopy at internal hemorrhoids which were treated hemoglobin stable no active bleeding plan to discharge More than > 30 minutes spent on the encounter
--- NOTE | 2025-01-19 13:57 | ESDS_ITS ---
Planned Discharge Date 01/19/25 DS: Providers Provider Date of admission: 01/17/25 16:55 Primary care physician: Vega Esparza MD Admitting Provider: Anibal Fish MD Attending Provider on Admission: Anibal Fish MD Consults: 01/17/25 15:52 Consult to Gastroenterology Stat Comment: Lower GI bleed Consulting Provider: Laurita Esparza Attending Provider on DC: Anibal Fish MD Discharging Provider: RESIDENT Saima Anticipated date of discharge: 01/19/25 DS: Diagnosis Problem List Completed Was Problem List Reviewed/Reconciled?: Yes Hospital Course Hospital Course Hospital course: Reason for hospitalization: Lower GI bleed Summary: This patient is a 59-year-old male with past medical history of myasthenia gravis (diagnosed in mid March 2024, follows Dr Lopez), diverticulosis, hemorrhoids, hypertension, and hyperlipidemia who presented to [facility] ED on 01/17 for bright red blood in bowel movements. The patient was admitted for GI bleed workup. The patient noted that he started to have bloody bowel movements about 2 days prior to admission. No dark tarry stools were noted. Patient's vitals were stable in ED and remained stable throughout hospitalization. GI was consulted, who performed colonoscopy on 01/18, which found internal hemorrhoids, grade 4. During the colonoscopy, 4 bands were placed to manage the patient's bleeding from the internal hemorrhoids. On 01/19, the patient has stable labs and stable vitals, and no further episodes of bright red blood from his rectum. The patient was medically cleared to be discharged back home with the recommendations of consuming a high-fiber diet and following up with CARLOS Smith, in 2 weeks. Discharge Recommendations: - Follow up with PCP within 1 week of discharge - Continue rest of medications as previously prescribed - Return to the ED or call EMS if symptoms return and/or worsen - Follow up with Dr. Esparza within 2 weeks of discharge. - Recommended to consume fiber rich diet indefinitely, use laxatives as needed and limit meat intake If you don't have a PCP, you can make an appointment at the [facility]: [address] [place] [address] Hospital Diagnoses: #Lower GI bleed #Internal hemorrhoids, grade 4 #Diverticulosis #Myasthenia gravis #Hypocalcemia #Primary hypertension #Hyperlipidemia Patient plan of care was discussed with the attending physician Dr. Polina Blanco, PGY-1 Status at Discharge Overall status at discharge: patient is back to baseline Time Spent with Patient Time attestation: Total time spent providing and/or coordinating discharge services: Time spent: Greater than 30 minutes Exam Vital Signs Temp Pulse Resp BP Pulse Ox O2 Del Method O2 Flow Rate 97.2 F 89 18 110/72 98 Room Air 3 01/19/25 10:30 01/19/25 10:01/19/25 10:01/19/25 10:30 01/19/25 10:01/19/25 10:01/18/25 16:10 Narrative Exam Physical Exam: General: Alert, no acute distress. Skin: Warm, dry, intact. Head: Normocephalic, atraumatic. Eye: Normal conjunctiva, PERRL. Throat: Oral mucosa moist. No obvious lesions in oropharynx. Cardiovascular: Regular rate and rhythm, no murmur, +S1/S2. Respiratory: Lungs are clear to auscultation, respirations unlabored, no crackles, no wheezing. Gastrointestinal: Soft, nontender, non-distended. No guarding or rebound tenderness. Extremities: No edema, no cyanosis, no clubbing. 2+ radial pulse bilaterally, 2+ pedal pulse bilaterally. Neuro: No focal deficits observed. Conversant, moving all extremities. No overt cerebellar signs/incoordination. Psychiatric: Cooperative, appropriate affect. Discharge Plan Plan Patient Disposition: HOME (Self Care) Patient condition on transfer: Stable Care Plan Goals: -Follow-up with PCP within 1 week of discharge. If you do not have appointment, please [facility] Dr. Nolan. Call [phone] to make an appointment. -Follow up with Dr. Esparza within 2 weeks of discharge. -Continue rest of the home medications -Recommended to consume fiber rich diet, use laxatives as needed and limit meat intake -Return to ED if symptoms persist or return Prescriptions/Referrals Prescriptions/Med Rec: Continued telmisartan 40 mg tablet 40 mg PO DAILY fenofibrate nanocrystallized 145 mg tablet 145 mg PO DAILY diclofenac sodium 1 % gel 2 g TOPICAL QAM Patient Comments: UNKNOWN DOSE PER PATIENT pyridostigmine bromide 180 mg tablet extended release 180 mg PO BID mycophenolate mofetil 250 mg capsule 250 mg PO BID Referrals: Vega Esparza MD [Primary Care Provider] Patient/Caregiver Discharge Instructions Education Materials: Bleeding Gastrointestinal, Colonoscopy, Anatomy of the Digestive System Print Language: [place] Stand Alone Forms: Kerline Award Info., Patient Portal Info Letter Discharge Order Discharge Orders: Discharge (Routine); Ordered 01/19/25 Ordered By: Jareth Nolan Quality Discharge Quality Measures VTE prophylaxis
--- NOTE | 2025-01-19 21:54 | PD.IMPROG ---
Documentation for date of: 01/19/25 Subjective Subjective Interval history: Hemoglobin did drop from 14.6-12.5 since the aggressive band ligation of the Large grade 4 internal hemorrhoids the bleeding has pretty much been controlled Okay to discharge patient home to be followed as an outpatient Exam Vital Signs Temp Pulse Resp BP Pulse Ox O2 Del Method O2 Flow Rate 97.2 F 89 18 110/72 98 Room Air 3 01/19/25 10:30 01/19/25 10:30 01/19/25 10:30 01/19/25 10:30 01/19/25 10:30 01/19/25 10:30 01/18/25 16:10 Objective Labs 01/19/25 04:53 01/19/25 04:53 Labs: Laboratory Results - last 24 hr 01/19/25 04:53 WBC 5.9 RBC 4.45 L Hgb 12.5 L D Hct 37.8 L MCV 85 MCH 28.1 MCHC 33.1 RDW Std Deviation 38.7 Plt Count 107 L D Neut % (Auto) 63 Lymph % (Auto) 26 [place] % (Auto) 8 Eos % (Auto) 2 Baso % (Auto) 1 Neut # (Auto) 3.7 Lymph # (Auto) 1.5 [place] # (Auto) 0.4 Eos # (Auto) 0.1 Baso # (Auto) 0.0 Immature Gran # (Auto) 0.02 H Absolute Nucleated RBC 0.00 Immature Gran % 0 Nucleated RBC % 0 Sodium 142 Potassium 4.2 D Chloride 107 Carbon Dioxide 24.5 Anion Gap 11 BUN 5 L Creatinine 0.9 Estim Creat Clear Calc 99.9 eGFR > 60 BUN/Creatinine Ratio 6 L Glucose 84 Calculated Osmolality 279 Calcium 9.3 Corrected Calcium 9.6 Phosphorus 3.7 Magnesium 1.8 Total Bilirubin 0.4 AST 23 ALT 14 Alkaline Phosphatase 45 L Total Protein 5.1 L Albumin 3.6 Globulin 1.5 L Albumin/Globulin Ratio 2.4 H Impressions Impression: Large grade 4 internal hemorrhoids requiring band ligation Possibly diverticular source of bleeding could be an additional source Okay to discharge patient home to be followed as an outpatient Assessment & Plan A&P Narrative Hematochezia Bright red bleeding per rectum Abnormal CT scan of the abdomen pelvis showing thickening of the rectal wall Plan Clear liquid diet GoLytely prep Consent obtained for fiberoptic colonoscopy with possible biopsy possible therapeutic intervention under intravenous moderate sedation Serial CBC Will follow the patient Other medical problems include Essential hypertension Myasthenia gravis Thank you once again for the opportunity to participate in care of this Time Spent With Patient Time: Total time spent is greater than 50% in coordination of care (as documented) at patient's floor/unit and/or counseling patient:
== END 2025-01-19 10:36 | disposition home or self-care (01) | DRG 348 ==
LOC: SERX 16:44 → SERHOLD 17:20 → S3NX 19:42
PROVIDERS: Nurse Practitioner Family; Specialist; Admitting Provider Internal Medicine; Emergency Provider Emergency Medicine; PCP Internal Medicine Endocrinology, Diabetes & Metabolism; Visit Provider Internal Medicine
PROC: 0DJD8ZZ Inspection of Lower Intestinal Tract, Via Natural or Artificial Opening Endoscopic (ICD-10-PCS; CPT 45378; principal; 2025-01-18 15:30)
DX: K64.3 Fourth degree hemorrhoids (principal); K92.1 Melena; G70.00 Myasthenia gravis without (acute) exacerbation; I10 Essential (primary) hypertension; E78.5 Hyperlipidemia, unspecified; K57.30 Diverticulosis of large intestine without perforation or abscess without bleeding; N20.0 Calculus of kidney; E83.52 Hypercalcemia; Z79.899 Other long term (current) drug therapy; Z86.0100 Personal history of colon polyps, unspecified; Z96.649 Presence of unspecified artificial hip joint; Z79.624 Long term (current) use of inhibitors of nucleotide synthesis
CPT/HCPCS: 36415; 74177; 80053; 81001; 83735; 84100; 84484; 85014; 85018; 85025; 85610; 85730; 86850; 86900; 86901; 93005; 99284; A4649; J1200; J2250; J3010; J7120; Q9967

== ENCOUNTER → 2025-04-20 | Outpatient (CLI) | payer BC, SELFPAY ==
[2025-04-20 14:29] LABS: Basophils # (Auto) 0.0 Thou/mm3 (0.0-0.2); Basophils % (Auto) 1 % (0-2.5); Eosinophils # (Auto) 0.1 Thou/mm3 (0.0-0.5); Eosinophils % (Auto) 1 % (0-10); Hematocrit 42.1 % (41.0-53.0); Hemoglobin 13.1 g/dL (13.5-16.0); Immature Granulocytes Auto 0.02 Thou/mm3 (0.00-0.00); Lymphocytes # (Auto) 1.1 Thou/mm3 (1.0-4.8); Lymphocytes % (Auto) 17 % (10-50); Mean Corpuscular HGB Conc 31.1 g/dl (31.0-37.0); Mean Corpuscular Hemoglobin 24.8 pg (25.0-35.0); Mean Corpuscular Volume 80 fL (80-100); Monocytes # (Auto) 0.4 Thou/mm3 (0.0-0.8); Monocytes % (Auto) 7 % (0-12); Neutrophils # (Auto) 4.8 Thou/mm3 (1.8-7.7); Neutrophils % (Auto) 74 % (37-80); Nucleated Red Blood Cell # 0.00 Thou/mm3 (0.00-0.00); Nucleated Red Blood Cell % 0 /100 WBC (0); Platelet Count 246 Thou/mm3 (140-440); RDW Standard Deviation 40.2 fL (35.1-43.9); Red Blood Count 5.28 Miln/mm3 (4.50-5.90); White Blood Count 6.4 Thou/mm3 (3.8-10.6)
[2025-04-20 14:33] LABS: Alanine Aminotransferase 16 U/L (10-49); Albumin, Serum 4.8 gm/dL (3.5-5.0); Albumin/Globulin Ratio 2.3 (1.2-2.2); Alkaline Phosphatase 58 U/L (46-116); Anion Gap 8 (7-16); Aspartate Amino Transferase 15 U/L (0-34); BUN/Creatinine Ratio 9 Ratio (12-20); Bilirubin,Total 0.4 mg/dL (0.3-1.2); Blood Urea Nitrogen 12 mg/dL (9-23); Calcium 10.0 mg/dL (8.3-10.6); Calcium (Corrected) 10.0 mg/dL (8.5-10.1); Carbon Dioxide 30.2 mMol/L (20.0-31.0); Chloride 107 mMol/L (98-107); Creatinine (Component) 1.3 mg/dL (0.6-1.3); Globulin 2.1 gm/dL (2.3-3.5); Glucose 102 mg/dL (74-106); Osmolality,Calculated 288 (275-295); Potassium 4.8 mMol/L (3.4-5.1); Sodium 145 mMol/L (136-145); Total Protein 6.9 gm/dL (5.7-8.2); eGFR > 60 See Note
== END | disposition home or self-care (01) ==
PROVIDERS: PCP Specialist; Referring Provider Psychiatry & Neurology Neurology; Visit Provider Psychiatry & Neurology Neurology
DX: M79.2 Neuralgia and neuritis, unspecified (principal)
CPT/HCPCS: 36415; 80053; 85025